=== PATIENT | female | born 1985 | race Caucasian/White ===

== ENCOUNTER 2016-09-05 14:06 | Emergency (ER) ==
[2016-09-05 14:16] VITALS: BP 130/61
--- NOTE | 2016-09-05 15:04 | PROVIDER DOCUMENTATION ---
HPI-Musculoskeletal Pain/Inj - GENERAL Chief Complaint: Fall Stated Complaint: FALL/FOOT INJURY Time Seen by Provider: 09/05/16 14:57 Source: patient - HX OF PRESENT ILLNESS-MUSKULOSKELTAL Nature of Presenting Problem: 31 y/o female c/o left foot pain. She was walking in socks, slipped, and twisted the left ankle at approx 2 hours ago. Was seen earlier today for low back pain. Denies hitting head or loc. Foot is painful, mostly anteriorly, radiating to the toes. Difficulty ambulating secondary to pain. She was give [place] 5 earlier and Toradol. Review of Systems - Adult - REVIEW OF SYSTEMS - ADULT Constitutional: reports: no symptoms reported. denies: chills, fever, fatique Eyes: reports: no symptoms reported. denies: blurred vision, double vision, eye pain Ears, Nose, Mouth & Throat: reports: no symptoms reported. denies: ear pain, nose pain, throat pain Cardiovascular: reports: no symptoms reported. denies: chest pain, palpitations Respiratory: reports: no symptoms reported. denies: cough, shortness of breath Gastrointestinal: reports: no symptoms reported. denies: abdominal pain, nausea , vomiting Genitourinary: reports: no symptoms reported. denies: dysuria, discharge, frequency, incontinence Musculoskeletal: reports: see HPI, back pain, joint pain, muscle aches Integumentary: reports: no symptoms reported. denies: rash Neurological: reports: no symptoms reported. denies: headache/migraines Psychiatric: reports: no symptoms reported Endocrine: reports: no symptoms reported Hematologic/Lymphatic: reports: no symptoms reported Allergic/Immunologic: reports: no symptoms reported All Other Systems: Reviewed and Negative Past History - Adult - PAST MEDICAL HISTORY-ADULT Review of Records: reports: Old Records Reviewed, Nursing Assessment Review, Medications Reviewed, Social history reviewed & non-contributory. Major Childhood Illnesses: reports: denies history Cardiovascular: reports: denies history Respiratory: reports: denies history Gastrointestinal: reports: denies history Obstetrical/Gynecological: reports: uterine/ovarian cancer Genitourinary: reports: denies history Musculoskeletal: reports: denies history Neurological: reports: headaches/migraines Psychiatric: reports: anxiety, depression Endocrine/Immune: reports: denies history Other Conditions: reports: denies history - PRIOR SURGERIES/PROCEDURES Surgical/Procedure History: reports: hysterectomy - IMMUNIZATION STATUS Childhood Immunizations: See Nurse Assessment Flu Vaccine: See Nurse Assessment - FAMILY HISTORY Family History: reviewed, not pertinent - SOCIAL HISTORY Smoking: less than 1 pack/day Provider spent 3-5 mins advising pt. on dangers of tobacco.: Discussed manners to quit use, and f/u contacts for add'l counseling. Substance Use: none/never Alcohol Use Frequency: never Living Situation: family Physical Exam-Injury Related - Physical Exam-Injury Related General Appearance: appears well, alert, no apparent distress Eyes: PERRL/EOMI, pink conjunctivae Head, Ears, Nose, Mouth & Throat: normocephalic/atraumatic, moist mucous membranes Neck: non-tender, full range of motion, supple, normal inspection Respiratory: chest non-tender, lungs clear, normal breath sounds, no pleuratic chest pain, no respiratory distress, no accessory muscle use. negative: respiratory distress, decreased breath sounds, accessory muscle use, crackles, rales, rhonchi, stridor, wheezing Cardiovascular: normal peripheral pulses, regular rate, rhythm, no edema, no gallop, no JVD, no murmur Peripheral Pulses: dorsalis-pedis (R): 2+, dorsalis-pedis (L): 2+ Lymphatic: no adenopathy Extremity: other (limping gait favoring left foot. 5/5 dorsi and plantar flextion, able to flex toes well. ecchymosis noted over base of the 3/4th digit. ) Integumentary: normal color, warm/dry Neurologic: grossly normal, no motor/sensory deficits Psych/Mental Status: AL, normal mood/affect, normal thought content, normal thought process, oriented x 3 - [place]ow Coma Score Best Eye Response ([place]): (4) open spontaneously Best Verbal Response ([place]): (5) oriented Best Motor Response ([place]): (6) obeys commands Progress - PLAN OF CARE/RESULTS Progress/Plan/Lab Results: Vital Signs Temp Pulse Resp BP Pulse Ox 09/05/16 14:14 98.1 F 98 H 18 130/61 100 amoxicillin [Amoxicillin] Allergy (Severe, Verified 07/05/15 17:56) RASH Penicillins Allergy (Severe, Verified 07/05/15 17:56) RASH sumatriptan [From Imitrex] Allergy (Severe, Verified 07/05/15 17:56) RASH sumatriptan succinate * [From Imitrex] Allergy (Severe, Verified 07/05/15 17:56) RASH clindamycin Allergy (Mild, Verified 07/05/15 17:56) RASH tramadol Allergy (Verified 07/05/15 17:56) NAUSEA/VOMITING Home Meds Unobtainable 07/05/15 Orders Category Date Time Status Stirrup Ankle Splint DIRECTED Care 09/05/16 15:03 Active ANKLE COMPLETE LEFT [RAD] Stat Exams 09/05/16 14:16 Taken FOOT COMPLETE LEFT [RAD] Stat Exams 09/05/16 14:16 Taken - XRAY 1 XRAY: Left XRAY Study: Ankle, Foot Impression: Normal (NAD per radiology) Procedures - SPLINTING Left Lower Extremity Pre-Procedure Neurovascular Exam: Intact Pre-Fabricated Splint: Velcro Splint Application (Hand-Made): Stir-Up 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 Departure - Departure Time of Disposition Order: 15:07 DIAGNOSIS: Foot contusion Qualifiers: Encounter type: initial encounter Laterality: left Qualified Code(s): S90.32XA - Contusion of left foot, initial encounter Foot sprain Qualifiers: Encounter type: initial encounter Laterality: left Qualified Code(s): S93.602A - Unspecified sprain of left foot, initial encounter Disposition: HOME 01 Certified Medical Emergency: Emergent Condition: Good Additional Instructions: Take the medications you were given at the ER earlier today ED Follow Up Instructions: You have been treated by a care provider in the Emergency Department. These instructions are being provided to you so you can have an understanding of how to care for yourself upon discharge. Upon discharge from the Emergency Department, you are responsible for making arrangements for follow-up care by a physician of your choice. Take all prescribed medications as directed. Return to the Emergency Department immediately for any new or worsening symptoms. You may call the Physician Referral phone number at [phone] to obtain a list of Physicians who are taking new patients. Referrals: Porfirio Orona Jr, MD [Primary Care Provider] - Forms: Return to School/Parent Work Instructions: Foot Contusion, [id number], Foot Sprain Attestation - Physician/ Mid-level Attestation Patient care was provided by Mid-level provider (HAND NAILER/PA):: Yes Mid-level provider:: Ana Soria Mid-level documentation review:: The Mid-level provider documentation, treatment plan and medical decision making was reviewed by the physician who agrees with all treatment and medical decision making by the MLP.
--- NOTE | 2016-09-05 15:08 | Diag Imaging Result Document ---
PROCEDURE NAME: ANKLE COMPLETE LEFT - 09/05/2016 LEFT ANKLE, THREE VIEWS: FINDINGS: There are two screws through the medial malleolus. No loosening. No acute fracture or dislocation. IMPRESSION: No acute bony injury.
--- NOTE | 2016-09-05 15:08 | Diag Imaging Result Document ---
PROCEDURE NAME: FOOT COMPLETE LEFT - 09/05/2016 LEFT FOOT, 3 VIEWS: FINDINGS: No fracture. No dislocation. IMPRESSION: No acute bony injury.
== END 2016-09-05 15:39 | disposition home or self-care (01) ==
LOC: ED 14:06
DX: S93.602A Unspecified sprain of left foot, initial encounter (principal); S90.32XA Contusion of left foot, initial encounter; M79.672 Pain in left foot; M79.675 Pain in left toe(s); M54.5 Low back pain; M79.1 Myalgia; F17.210 Nicotine dependence, cigarettes, uncomplicated; Z71.6 Tobacco abuse counseling; W01.0XXA Fall on same level from slipping, tripping and stumbling without subsequent striking against object, initial encounter
CPT/HCPCS: 99283